=== PATIENT | female | born 1985 | race Caucasian/White ===

== ENCOUNTER 2022-03-01 16:11 | Emergency (ER) | payer BC ==
[2022-03-01 18:56] LABS: Hemoglobin 6.6 gm/dl (10.1-14.3); Mean Corpuscular HGB Conc 34 % (30-34); Mean Corpuscular Volume 89 fl (79-97); Platelet Count 318 K/mm3 (140-440); Red Cell Distribution Width 12.7 % (13.2-15.2)
[2022-03-01 19:07] LABS: INR 1.12 (0.87-1.13); Partial Thromboplastin Time 24.9 Sec. (24.2-36.6)
[2022-03-01 19:32] LABS: Alanine Aminotransferase 17 units/L (7-56); Albumin 3.8 g/dL (3.9-5); BUN/Creatinine Ratio 15; Blood Urea Nitrogen 12 mg/dL (7-17); Calcium 8.9 mg/dL (8.4-10.2); Hemolysis Index 2
[2022-03-01 20:22] LABS: Hematocrit 19.6 % (30.3-42.9)
[2022-03-01] MEDS ORDERED: SODIUM CHLORIDE 0.9% 1000 ML 1,000 ML IV ONE (21:25)
[2022-03-01 22:22] LABS: INR 1.39 (0.87-1.13)
[2022-03-01] MEDS ORDERED: SODIUM CHLORIDE 0.9% 500 ML 500 ML ONE (23:46)
--- NOTE | 2022-03-02 01:37 | Ultrasound Report ---
ULTRASOUND PELVIS INDICATION / CLINICAL INFORMATION: Vaginal bleeding. TECHNIQUE: Transabdominal. Duplex Color Doppler used: Yes. COMPARISON: None available FINDINGS: UTERUS: The uterus measures 7.7 x 4 x 5.6 cm. The uterus demonstrates a normal sonographic appearanc e. The endometrial stripe measures 1.8 cm. RIGHT ADNEXA: No significant ovarian cyst or mass. Normal color Doppler blood flow. LEFT ADNEXA: 3.3 cm cyst in the left ovary. No routine follow-up is required. Normal color Doppler bl ood flow. URINARY BLADDER: No significant abnormality. FREE FLUID: None. ADDITIONAL FINDINGS: None. IMPRESSION: 1. Mildly thickened endometrial stripe, likely physiologic in this young patient. 2. 3.3 cm left ovarian cyst. No routine follow-up is required. No evidence of ovarian torsion. Signer Name: Harris Montes De Oca MD Signed: 03/02/2022 1:32 AM Workstation Name: [id number]
[2022-03-02 02:54] VITALS: BP 105/81
--- NOTE | 2022-03-02 03:01 | Emergency Department Report ---
ED General Adult HPI - General Chief complaint: Vaginal Bleeding Stated complaint: VAGINAL BLEEDING PUI?: No Time Seen by Provider: 03/01/22 21:20 Source: patient, EMS Mode of arrival: Stretcher Limitations: No Limitations - History of Present Illness Initial comments: PT ARRIVING FROM DENTAL RESIDENT OFFICE FOR LAB WORK. VAG BLEEDING X1 WEEK. BLOOD WAS DRAWN AT THE OFFICE TODAY, BUT WOULD LIKE LAB WORK DONE AT ED TO COMPARE TO THEIR RESU LTS THAT HAVE NOT RESULTED. -: Gradual, days(s) Severity scale (0 -10): 3 Improves with: none Worsens with: none Associated Symptoms: denies: denies other symptoms, confusion, chest pain, cough, diaphoresis, fever/chills - Related Data Previous Rx's Medication Instructions Recorded Last Taken Type Ferrous Sulfate [Feosol 325 MG tab] 325 mg PO BID #60 tablet 04/23/15 Unknown Rx Ciprofloxacin HCl [Ciprofloxacin 500 mg PO BID #10 tablet 10/11/16 Unknown Rx TAB] Promethazine [Phenergan] 25 mg PO Q6HR PRN #20 tab 10/11/16 Unknown Rx metroNIDAZOLE [Flagyl] 500 mg PO Q12HR #10 tab 10/11/16 Unknown Rx Allergies Allergy/AdvReac Type Severity Reaction Status Date / Time Penicillins Allergy Hives Verified 03/01/22 16:22 ED Review of Systems ROS: Stated complaint: VAGINAL BLEEDING Other details as noted in HPI Constitutional: denies: chills, fever Eyes: denies: eye pain, eye discharge, vision change ENT: denies: ear pain, throat pain Respiratory: denies: cough, shortness of breath, wheezing Cardiovascular: denies: chest pain, palpitations Endocrine: no symptoms reported Gastrointestinal: denies: abdominal pain, nausea, diarrhea Genitourinary: denies: urgency, dysuria, discharge Musculoskeletal: denies: back pain, joint swelling, arthralgia Skin: denies: rash, lesions Neurological: denies: headache, weakness, paresthesias Psychiatric: denies: anxiety, depression Hematological/Lymphatic: denies: easy bleeding, easy bruising ED Past Medical Hx - Past Medical History Hx Hypertension: No Hx Congestive Heart Failure: No Hx Diabetes: No Hx Deep Vein Thrombosis: No Hx Renal Disease: No Hx Sickle Cell Disease: No Hx Arthritis: Yes (knees) Hx Seizures: No Hx Asthma: Yes (last attack 3yrs ago) Hx COPD: No Hx HIV: No - Social History Smoking Status: Unknown if ever smoked - Medications Home Medications: Home Medications Medication Instructions Recorded Confirmed Last Taken Type Ferrous Sulfate [Feosol 325 MG tab] 325 mg PO BID #60 tablet 04/23/15 Unknown Rx Ciprofloxacin HCl [Ciprofloxacin 500 mg PO BID #10 tablet 10/11/16 Unknown Rx TAB] Promethazine [Phenergan] 25 mg PO Q6HR PRN #20 tab 10/11/16 Unknown Rx metroNIDAZOLE [Flagyl] 500 mg PO Q12HR #10 tab 10/11/16 Unknown Rx ED Physical Exam - General Limitations: No Limitations General appearance: alert, in no apparent distress - Head Head exam: Present: atraumatic, normocephalic - Eye Eye exam: Present: normal appearance - ENT ENT exam: Present: mucous membranes moist - Neck Neck exam: Present: normal inspection - Respiratory Respiratory exam: Present: normal lung sounds bilaterally. Absent: respiratory distress - Cardiovascular Cardiovascular Exam: Present: regular rate, tachycardia. Absent: systolic murmur, diastolic murmur, rubs, gallop - GI/Abdominal GI/Abdominal exam: Present: soft, normal bowel sounds - External exam: Present: normal external exam Speculum exam: Present: vaginal bleeding - Extremities Exam Extremities exam: Present: normal inspection - Back Exam Back exam: Present: normal inspection - Neurological Exam Neurological exam: Present: alert, oriented X3 - Psychiatric Psychiatric exam: Present: normal affect, normal mood - Skin Skin exam: Present: warm, dry, intact, normal color. Absent: rash ED Course Vital Signs 03/01/22 03/01/22 03/01/22 16:18 17:43 21:48 Temperature 98.5 F Pulse Rate 110 H 116 H Respiratory 18 24 Rate Blood Pressure Blood Pressure 140/80 102/55 [Left] O2 Sat by Pulse 100 100 100 Oximetry 03/01/22 03/01/22 03/01/22 21:57 22:00 22:16 Temperature Pulse Rate 120 H 118 H Respiratory 16 15 16 Rate Blood Pressure 113/72 113/72 Blood Pressure [Left] O2 Sat by Pulse 98 100 100 Oximetry 03/01/22 03/01/22 03/01/22 22:30 22:46 23:00 Temperature Pulse Rate 115 H 119 H 113 H Respiratory 15 18 18 Rate Blood Pressure 116/71 116/71 107/67 Blood Pressure [Left] O2 Sat by Pulse 100 100 100 Oximetry 03/01/22 03/01/22 03/01/22 23:16 23:30 23:40 Temperature Pulse Rate 115 H 127 H 118 H Respiratory 19 17 17 Rate Blood Pressure 107/67 106/69 99/72 Blood Pressure [Left] O2 Sat by Pulse 100 100 100 Oximetry 03/01/22 03/01/22 03/02/22 23:50 23:53 00:00 Temperature 98.0 F Pulse Rate 113 H 118 H Respiratory 16 13 Rate Blood Pressure 102/68 102/68 Blood Pressure [Left] O2 Sat by Pulse 100 100 Oximetry 03/02/22 03/02/22 03/02/22 00:10 00:16 00:30 Temperature Pulse Rate 108 H 114 H 118 H Respiratory 21 18 13 Rate Blood Pressure 110/62 110/62 122/62 Blood Pressure [Left] O2 Sat by Pulse 100 100 100 Oximetry 03/02/22 03/02/22 03/02/22 00:46 01:00 01:16 Temperature Pulse Rate 106 H 123 H 103 H Respiratory 18 14 14 Rate Blood Pressure 110/62 108/61 108/61 Blood Pressure [Left] O2 Sat by Pulse 100 100 100 Oximetry 03/02/22 03/02/22 03/02/22 01:20 01:30 01:46 Temperature 99.9 F H Pulse Rate 106 H 101 H Respiratory 13 12 Rate Blood Pressure 111/70 111/70 Blood Pressure [Left] O2 Sat by Pulse 100 100 Oximetry 03/02/22 03/02/22 03/02/22 02:00 02:16 02:30 Temperature Pulse Rate 104 H 109 H 124 H Respiratory 12 12 16 Rate Blood Pressure 111/68 111/70 110/71 Blood Pressure [Left] O2 Sat by Pulse 100 100 100 Oximetry 03/02/22 03/02/22 02:40 02:50 Temperature Pulse Rate 147 H 101 H Respiratory 17 13 Rate Blood Pressure 110/71 105/81 Blood Pressure [Left] O2 Sat by Pulse 100 100 Oximetry ED Medical Decision Making - Lab Data Result diagrams: 03/01/22 18:08 03/01/22 18:08 - Radiology Data Radiology results: report reviewed, image reviewed - Medical Decision Making work up showed elevated wbc , Low H.H , vss , fluids given one uit of blood given , US unreamrkable , pelvic exam showed some clots but no active bleeding , spoke with dr Newton ob building insulation installer, ok with Blood transfusion and d/c , follow up with her ob Critical care attestation.: If time is entered above; I have spent that time in minutes in the direct care of this critically ill patient, excluding procedure time. ED Disposition Clinical Impression: Vaginal bleeding Disposition: HOME / SELF CARE / HOMELESS Is pt being admited?: No Does the pt Need Aspirin: No Condition: Stable Instructions: Abnormal Uterine Bleeding Referrals: TU SALDIVAR MD [Primary Care Provider] - 3-5 Days
[2022-03-02 03:34] LABS: Mucus,Urine 3+ /HPF
[2022-03-02 03:38] LABS: HCG Qualitative,Urine Negative (Negative)
[2022-03-02 03:39] LABS: Bilirubin,Urine Negative (Negative); Blood,Urine Large (Negative); Color,Urine Amber (Yellow); RBC,Urine > 182.0 /HPF (0.0-6.0); Urobilinogen,Urine < 2.0 mg/dL (<2.0)
--- NOTE | 2022-03-02 17:53 | Electrocardiograph Report ---
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
== END 2022-03-02 03:12 | disposition home or self-care (01) ==
LOC: ED 16:11
DX: N93.9 Abnormal uterine and vaginal bleeding, unspecified (principal); J45.909 Unspecified asthma, uncomplicated; M17.0 Bilateral primary osteoarthritis of knee
CPT/HCPCS: 36415; 76856; 80053; 81001; 81025; 84703; 85027; 85610; 85730; 86850; 86900; 86901; 86920; 87086; 93005; 96360; 99285; J7030; J7040; P9016

== ENCOUNTER 2022-03-04 02:24 | Observation (INO) | payer BC ==
[2022-03-04 03:22] LABS: Mean Corpuscular HGB Conc 33 % (30-34); Mean Corpuscular Volume 91 fl (79-97); Platelet Count 303 K/mm3 (140-440); Red Blood Count 1.92 M/mm3 (3.65-5.03); Red Cell Distribution Width 13.8 % (13.2-15.2)
[2022-03-04 03:24] LABS: Hematocrit 17.5 % (30.3-42.9); Hemoglobin 5.7 gm/dl (10.1-14.3)
[2022-03-04] MEDS ORDERED: SODIUM CHLORIDE 0.9% 500 ML 500 ML IV ONE (03:48)
[2022-03-04 03:55] LABS: Total Cells Counted 100
[2022-03-04 03:56] LABS: Anisocytosis 1+; Basophils % (Manual) 0 % (0.0-1.8); Blood Urea Nitrogen 7 mg/dL (7-17); Calcium 8.9 mg/dL (8.4-10.2); Hemolysis Index 0; Platelet Estimate Consistent w Auto
[2022-03-04] MEDS ORDERED: SODIUM CHLORIDE 0.9% 1000 ML 1,000 ML IV ONE (03:57)
--- NOTE | 2022-03-04 04:00 | Emergency Department Report ---
HPI - General Chief Complaint: Vaginal Bleeding Time Seen by Provider: 03/04/22 03:26 - [facility] HPI: Room 7 Patient is a 36-year-old female present with chief complaint of vaginal bleeding. Patient states she has had vaginal bleeding for the past 2 weeks, then approximately 48 pads per day. Patient states she came to this hospital approximate 2 days ago had a blood transfusion was being set up for uterine ablation. Patient states she still has vaginal bleeding despite taking Provera although it has slowed up some. Patient states she developed a headache and chest pain with exertion 2 days ago. Patient states she does get short of breath with exertion and has palpitations whenever she gets up and moves around. Patient currently denies chest pain while at rest. Patient mitts to nausea with dry heaving ED Past Medical Hx - Past Medical History Hx Arthritis: Yes (knees) Hx Asthma: Yes (last attack 3yrs ago) - Surgical History Additional Surgical History: Left iliac stent, left knee surgery x2 - Family History Family history: no significant - Social History Smoking Status: Never Smoker Substance Use Type: None (Denies illicit drug use), Alcohol (Occasional) - Medications Home Medications: Home Medications Medication Instructions Recorded Confirmed Last Taken Type Rivaroxaban [Xarelto] 20 mg PO QDAY 03/04/22 03/04/22 Unknown History ED Review of Systems ROS: Stated complaint: HIGH HEART RATE/VAGINAL BLEEDING Other details as noted in HPI Constitutional: no symptoms reported Eyes: denies: eye pain ENT: denies: throat pain Respiratory: shortness of breath Cardiovascular: chest pain, palpitations Endocrine: no symptoms reported Gastrointestinal: nausea Genitourinary: abnormal menses Musculoskeletal: denies: back pain Neurological: headache Physical Exam - Physical Exam Vital Signs: Vital Signs 03/04/22 02:36 Temperature 98.3 F Pulse Rate 123 H Respiratory 18 Rate Blood Pressure 117/75 O2 Sat by Pulse 100 Oximetry Physical Exam: GENERAL: The patient is well-developed well-nourished female lying on stretcher not appearing to be in acute distress. [] HEENT: Normocephalic. Atraumatic. Extraocular motions are intact. Patient has moist mucous membranes. NECK: Supple. Trachea midline CHEST/LUNGS: Clear to auscultation. There is no respiratory distress noted. HEART/CARDIOVASCULAR: Regular. There is tachycardia. There is no gallop rub or murmur. ABDOMEN: Abdomen is soft, nontender. Patient has normal bowel sounds. There is no abdominal distention. SKIN: There is no rash. There is no edema. There is no diaphoresis. NEURO: The patient is awake, alert, and oriented. The patient is cooperative. The patient has no focal neurologic deficits. The patient has normal speech. GCS 15 MUSCULOSKELETAL: There is no evidence of acute injury. PELVIC: Small to moderate amount of dark red blood in the vaginal vault. ED Course Vital Signs 03/04/22 02:36 Temperature 98.3 F Pulse Rate 123 H Respiratory 18 Rate Blood Pressure 117/75 O2 Sat by Pulse 100 Oximetry ED Medical Decision Making - Lab Data Result diagrams: 03/04/22 15:17 03/04/22 03:03 Laboratory Tests 03/04/22 03/04/22 03/04/22 03:03 03:03 03:03 WBC 14.8 H RBC 1.92 L Hgb 5.7 L* Hct 17.5 L* MCV 91 MCH 30 MCHC 33 RDW 13.8 Plt Count 303 Lymph # (Auto) Slab Installer Add Manual Diff Complete Total Counted 100 Seg Neuts % (Manual) 67.0 Band Neutrophils % 0 Lymphocytes % (Manual) 31.0 Reactive Lymphs % (Man) 0 Monocytes % (Manual) 1.0 Eosinophils % (Manual) 1.0 Basophils % (Manual) 0 Metamyelocytes % 0 Myelocytes % 0 Promyelocytes % 0 Blast Cells % 0 Nucleated RBC % Not Reportable Seg Neutrophils # Man 9.9 H Band Neutrophils # 0.0 Lymphocytes # (Manual) 4.6 Abs React Lymphs (Man) 0.0 Monocytes # (Manual) 0.1 Eosinophils # (Manual) 0.1 Basophils # (Manual) 0.0 Metamyelocytes # 0.0 Myelocytes # 0.0 Promyelocytes # 0.0 Blast Cells # 0.0 WBC Morphology Not Reportable Hypersegmented Neuts Not Reportable Hyposegmented Neuts Not Reportable Hypogranular Neuts Not Reportable Smudge Cells Not Reportable Toxic Granulation Not Reportable Toxic Vacuolation Not Reportable Dohle Bodies Not Reportable Pelger-Huet Anomaly Not Reportable Ramesh Rods Not Reportable Platelet Estimate Consistent w auto Clumped Platelets Not Reportable Plt Clumps, EDTA Not Reportable Large Platelets Not Reportable Giant Platelets Not Reportable Platelet Satelliting Not Reportable Plt Morphology Comment Not Reportable RBC Morphology Not Reportable Dimorphic RBCs Not Reportable Polychromasia Not Reportable Hypochromasia Not Reportable Poikilocytosis Not Reportable Anisocytosis 1+ Microcytosis Not Reportable Macrocytosis Not Reportable Spherocytes Not Reportable Pappenheimer Bodies Not Reportable Sickle Cells Not Reportable Target Cells Not Reportable Tear Drop Cells Not Reportable Ovalocytes Not Reportable Helmet Cells Not Reportable Olivares-Parkerfield Bodies Not Reportable [place] Rings Not Reportable Rasheed Cells Not Reportable Bite Cells Not Reportable Crenated Cell Not Reportable Elliptocytes Not Reportable Acanthocytes (Spur) Not Reportable Rouleaux Not Reportable Hemoglobin C Crystals Not Reportable Schistocytes Not Reportable Malaria parasites Not Reportable Costa Bodies Not Reportable Hem Pathologist Commnt No PT INR APTT Sodium Potassium Chloride Carbon Dioxide Anion Gap BUN Creatinine Estimated GFR BUN/Creatinine Ratio Glucose Calcium HCG, Qual Negative HCG, Quant < 2 Blood Type Antibody Screen Crossmatch 03/04/22 03/04/22 03/04/22 03:03 03:03 03:03 WBC RBC Hgb Hct MCV MCH MCHC RDW Plt Count Lymph # (Auto) Add Manual Diff Total Counted Seg Neuts % (Manual) Band Neutrophils % Lymphocytes % (Manual) Reactive Lymphs % (Man) Monocytes % (Manual) Eosinophils % (Manual) Basophils % (Manual) Metamyelocytes % Myelocytes % Promyelocytes % Blast Cells % Nucleated RBC % Seg Neutrophils # Man Band Neutrophils # Lymphocytes # (Manual) Abs React Lymphs (Man) Monocytes # (Manual) Eosinophils # (Manual) Basophils # (Manual) Metamyelocytes # Myelocytes # Promyelocytes # Blast Cells # WBC Morphology Hypersegmented Neuts Hyposegmented Neuts Hypogranular Neuts Smudge Cells Toxic Granulation Toxic Vacuolation Dohle Bodies Pelger-Huet Anomaly Ramesh Rods Platelet Estimate Clumped Platelets Plt Clumps, EDTA Large Platelets Giant Platelets Platelet Satelliting Plt Morphology Comment RBC Morphology Dimorphic RBCs Polychromasia Hypochromasia Poikilocytosis Anisocytosis Microcytosis Macrocytosis Spherocytes Pappenheimer Bodies Sickle Cells Target Cells Tear Drop Cells Ovalocytes Helmet Cells Olivares-Parkerfield Bodies [place] Rings [place] Cells Bite Cells Crenated Cell Elliptocytes Acanthocytes (Spur) Rouleaux Hemoglobin C Crystals Schistocytes Malaria parasites Costa Bodies Hem Pathologist Commnt PT INR APTT Sodium 139 Potassium 3.4 L Chloride 107.5 H Carbon Dioxide 19 L Anion Gap 16 BUN 7 Creatinine 0.7 Estimated GFR > 60 BUN/Creatinine Ratio 10 Glucose 117 H Calcium 8.9 HCG, Qual HCG, Quant Blood Type O POSITIVE O POSITIVE Antibody Screen Negative Crossmatch See Detail 03/04/22 03:49 WBC RBC Hgb Hct MCV MCH MCHC RDW Plt Count Lymph # (Auto) Add Manual Diff Total Counted Seg Neuts % (Manual) Band Neutrophils % Lymphocytes % (Manual) Reactive Lymphs % (Man) Monocytes % (Manual) Eosinophils % (Manual) Basophils % (Manual) Metamyelocytes % Myelocytes % Promyelocytes % Blast Cells % Nucleated RBC % Seg Neutrophils # Man Band Neutrophils # Lymphocytes # (Manual) Abs React Lymphs (Man) Monocytes # (Manual) Eosinophils # (Manual) Basophils # (Manual) Metamyelocytes # Myelocytes # Promyelocytes # Blast Cells # WBC Morphology Hypersegmented Neuts Hyposegmented Neuts Hypogranular Neuts Smudge Cells Toxic Granulation Toxic Vacuolation Dohle Bodies Pelger-Huet Anomaly Ramesh Rods Platelet Estimate Clumped Platelets Plt Clumps, EDTA Large Platelets Giant Platelets Platelet Satelliting Plt Morphology Comment RBC Morphology Dimorphic RBCs Polychromasia Hypochromasia Poikilocytosis Anisocytosis Microcytosis Macrocytosis Spherocytes Pappenheimer Bodies Sickle Cells Target Cells Tear Drop Cells Ovalocytes Helmet Cells Olivares-Parkerfield Bodies [place] Rings Rasheed Cells Bite Cells Crenated Cell Elliptocytes Acanthocytes (Spur) Rouleaux Hemoglobin C Crystals Schistocytes Malaria parasites Costa Bodies Hem Pathologist Commnt PT 16.2 H INR 1.16 H APTT 25.6 Sodium Potassium Chloride Carbon Dioxide Anion Gap BUN Creatinine Estimated GFR BUN/Creatinine Ratio Glucose Calcium HCG, Qual HCG, Quant Blood Type Antibody Screen Crossmatch - Radiology Data Radiology results: report reviewed (Pelvic ultrasound), image reviewed (Pelvic ultrasound) [facility] [address] [place] [address] Ultrasound Report Signed Patient: NEENA MAZA MR#: [id number] : 1985 Acct:[id number] Age/Sex: 36 / F ADM Date: 03/04/22 Loc: ED Attending Dr: Ordering Physician: DEMIAN MORAN MD Date of Service: 03/04/22 Procedure(s): US transvaginal Accession Number(s): [id number] cc: DEMIAN MORAN MD ULTRASOUND PELVIS INDICATION / CLINICAL INFORMATION: Vaginal bleeding. TECHNIQUE: Transvaginal. Duplex Color Doppler used: Yes. COMPARISON: 03/02/2022 FINDINGS: UTERUS: The uterus measures 7.3 x 4.2 x 4.7 cm. The uterus demonstrates a normal sonographic appearance. The endometrial stripe measures 2.0 cm. RIGHT ADNEXA: No significant ovarian cyst or mass. Normal color Doppler blood flow. LEFT ADNEXA: Multiple follicles, largest measuring 1.5 cm. Previously described 3.3 cm left ovarian cyst is no longer visualized. No suspicious ovarian cyst or mass. Normal color D oppler blood flow. URINARY BLADDER: No significant abnormality. FREE FLUID: None. ADDITIONAL FINDINGS: None. IMPRESSION: 1. Persistent thickening of the endometrial stripe, measuring 2 cm. This is nonspecific but likely physiologic in this young patient. However, continued follow-up with CLINICAL ACCOUNT SPECIALIST is recommended. 2. No suspicious adnexal cyst or mass. No evidence of ovarian torsion. Signer Name: Guillermo Montes De Oca MD Signed: 03/04/2022 5:36 AM Workstation Name: [id number] Transcribed By: COLLINS Dictated By: GUILLERMO MONTES DE OCA MD Electronically Authenticated By: GUILLERMO MONTES DE OCA MD Signed Date/Time: 03/04/22535 DD/ 3 TD/TT: - Differential Diagnosis Menorrhagia, symptomatic anemia Critical care attestation.: If time is entered above; I have spent that time in minutes in the direct care of this critically ill patient, excluding procedure time. ED Disposition Clinical Impression: Menorrhagia, Symptomatic anemia Disposition: ADMITTED INPATIENT Is pt being admited?: Yes Does the pt Need Aspirin: No Condition: Stable Time of Disposition: 05:56 (CLINICAL ACCOUNT SPECIALIST paged)
[2022-03-04 04:06] LABS: BUN/Creatinine Ratio 10
[2022-03-04 04:16] LABS: INR 1.16 (0.87-1.13)
[2022-03-04 04:17] LABS: Partial Thromboplastin Time 25.6 Sec. (24.2-36.6)
[2022-03-04] MEDS ORDERED: ONDANSETRON 4 MG/2 ML INJ IV ONE (04:24)
[2022-03-04] MEDS ORDERED: fentaNYL 100 MCG/2 ML INJ IV ONE (04:24)
--- NOTE | 2022-03-04 05:40 | Ultrasound Report ---
ULTRASOUND PELVIS INDICATION / CLINICAL INFORMATION: Vaginal bleeding. TECHNIQUE: Transvaginal. Duplex Color Doppler used: Yes. COMPARISON: 03/02/2022 FINDINGS: UTERUS: The uterus measures 7.3 x 4.2 x 4.7 cm. The uterus demonstrates a normal sonographic appeara nce. The endometrial stripe measures 2.0 cm. RIGHT ADNEXA: No significant ovarian cyst or mass. Normal color Doppler blood flow. LEFT ADNEXA: Multiple follicles, largest measuring 1.5 cm. Previously described 3.3 cm left ovarian c yst is no longer visualized. No suspicious ovarian cyst or mass. Normal color Doppler blood flow. URINARY BLADDER: No significant abnormality. FREE FLUID: None. ADDITIONAL FINDINGS: None. IMPRESSION: 1. Persistent thickening of the endometrial stripe, measuring 2 cm. This is nonspecific but likely ph ysiologic in this young patient. However, continued follow-up with CNA INSTRUCTOR is recommended. 2. No suspicious adnexal cyst or mass. No evidence of ovarian torsion. Signer Name: Harris Montes De Oca MD Signed: 03/04/2022 5:36 AM Workstation Name: [id number]
[2022-03-04 06:10] LABS: Mucus,Urine FEW /HPF
[2022-03-04 06:13] LABS: Bilirubin,Urine Negative (Negative); Blood,Urine 4+ (Negative); Color,Urine Straw (Yellow); RBC,Urine > 182.0 /HPF (0.0-6.0); Urobilinogen,Urine < 1.0 mg/dL (<2.0)
[2022-03-04] MEDS ORDERED: ACETAMINOPHEN 325 MG TAB PO PRN (06:26)
[2022-03-04] MEDS ORDERED: NALOXONE 0.4 MG/1 ML INJ IV PRN (06:26)
--- NOTE | 2022-03-04 08:47 | Short Stay Summary ---
Short Stay Documentation Date of service: 03/04/22 Narrative H&P: 36-year-old -0-0-3 with a history of worsening vaginal bleeding. The patient has recently been initiated on anticoagulation therapy with Xarelto secondary to findings of inadequate blood flow involving the left lower extremity per the patient report. She also states having a stent placed. The patient has become hemodynamically unstable with symptoms of palpitations dizziness and fatigue. At the time of presentation in the emergency department the patient was tachycardic with a hemoglobin less than 6. Medical management has been attempted with oral progesterone however she has been unresponsive. The patient was admitted for transfusion of blood products. Will attempt an embolization to control her uterine bleeding. - History Principal diagnosis: Menorrhagia; Symptomatic anemia Past Medical History: DVT Social history: - Allergies and Medications Current Medications: Allergies Penicillins Allergy (Verified 03/01/22 16:22) Hives Home Medications Medication Instructions Recorded Confirmed Last Taken Type Ferrous Sulfate [Feosol 325 MG tab] 325 mg PO BID #60 tablet 04/23/15 Unknown Rx Ciprofloxacin HCl [Ciprofloxacin 500 mg PO BID #10 tablet 10/11/16 Unknown Rx TAB] Promethazine [Phenergan] 25 mg PO Q6HR PRN #20 tab 10/11/16 Unknown Rx metroNIDAZOLE [Flagyl] 500 mg PO Q12HR #10 tab 10/11/16 Unknown Rx Active Medications Acetaminophen (Acetaminophen 325 Mg Tab) 650 mg PO Q4H PRN PRN Reason: Pain MILD(1-3)/Fever >100.5/CHU Sodium Chloride (Nacl 0.9% 1000 Ml) 1,000 mls @ 125 mls/hr IV DIRECT JOSUE Morphine Sulfate (Morphine 2 Mg/1 Ml Inj) 2 mg IV Q4H PRN PRN Reason: Pain, Moderate (4-6) Naloxone HCl (Naloxone 0.4 Mg/1 Ml Inj) 0.1 mg IV Q2MIN PRN PRN Reason: Res Rate </= 8 or 02 SAT < 92% Ondansetron HCl (Ondansetron 4 Mg/2 Ml Inj) 4 mg IV Q8H PRN PRN Reason: Nausea And Vomiting Sodium Chloride (Sodium Chloride 0.9% 10 Ml Flush Syringe) 10 ml IV BID JOSUE Sodium Chloride (Sodium Chloride 0.9% 10 Ml Flush Syringe) 10 ml IV PRN PRN PRN Reason: LINE FLUSH - Physical exam General appearance: mild distress, other Integumentary: no rash HEENT: Atraumatic Lungs: Clear to auscultation Breasts: deferred Heart: Other (Tachycardia) - Hospital course Hospital course: The patient was admitted through the emergency department secondary to symptomatic anemia with a hemoglobin of 5.7 at presentation. 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 The patient also had a history of placement of a stent secondary to this compression. She was unable to be managed as outpatient with medical therapy. The patient was admitted and underwent transfusion of blood products and also a uterine artery embolization. She had considerable improvement of her symptoms and remained hemodynamically stable after the procedure and the transfusion. - Disposition Condition at discharge: Good Disposition: 01 HOME / SELF CARE / HOMELESS Short Stay Discharge Plan Activity: no restrictions Diet: regular Additional Instructions: Patient may follow-up with Dr. Patrick in 2 weeks Please present to the office earlier if abnormal bleeding resumes Prescriptions: Docusate Sodium [Colace] 100 mg PO BID PRN #60 capsule PRN Reason: Constipation Ferrous Sulfate [Feosol 325 MG tab] 325 mg PO BID #60 tablet
--- NOTE | 2022-03-04 08:59 | Consultation ---
History of Present Illness - Reason for Consult Consult date: 03/04/22 Chest pain with severe anemia Requesting physician: ANDRESSA WILLIAMSON - History of Present Illness Patient is a 36-year-old female with a history of migraine headaches, peripheral artery disease left lower ext with stent placed in November 2021 and currently on Xarelto. She presents to the ED with complaints of dizziness palpitations fatigue and chest discomfort. The chest discomfort she describes as pressure on her chest 7/10 in intensity and some shortness of breath associated. She reports a history of menorrhagia and was taken off control pill due to TIA scare a few months ago. She reports that since initiation of Xarelto she has had heavy bleeding. On arrival to the ER she was noted to have a hemoglobin of 5.7 and was admitted with 2 units of blood. At the time of my evaluation she denies any further chest pain she states that she is feeling much better dizziness is resolved and palpitations is resolved. She is being planned for embolization to control her uterine bleed. Past History Past Medical History: DVT, migraines, other (PAD) Past Surgical History: arthroscopy, Other (Left pleural stent placement lower extremity) Social history: Family history: CAD Medications and Allergies Allergies Allergy/AdvReac Type Severity Reaction Status Date / Time Penicillins Allergy Hives Verified 03/01/22 16:22 Home Medications Medication Instructions Recorded Confirmed Last Taken Type Ferrous Sulfate [Feosol 325 MG tab] 325 mg PO BID #60 tablet 04/23/15 Unknown Rx Ciprofloxacin HCl [Ciprofloxacin 500 mg PO BID #10 tablet 10/11/16 Unknown Rx TAB] Promethazine [Phenergan] 25 mg PO Q6HR PRN #20 tab 10/11/16 Unknown Rx metroNIDAZOLE [Flagyl] 500 mg PO Q12HR #10 tab 10/11/16 Unknown Rx Active Meds: Active Medications Acetaminophen (Acetaminophen 325 Mg Tab) 650 mg PO Q4H PRN PRN Reason: Pain MILD(1-3)/Fever >100.5/CHU Sodium Chloride (Nacl 0.9% 1000 Ml) 1,000 mls @ 125 mls/hr IV DIRECT JOSUE Morphine Sulfate (Morphine 2 Mg/1 Ml Inj) 2 mg IV Q4H PRN PRN Reason: Pain, Moderate (4-6) Naloxone HCl (Naloxone 0.4 Mg/1 Ml Inj) 0.1 mg IV Q2MIN PRN PRN Reason: Res Rate </= 8 or 02 SAT < 92% Ondansetron HCl (Ondansetron 4 Mg/2 Ml Inj) 4 mg IV Q8H PRN PRN Reason: Nausea And Vomiting Sodium Chloride (Sodium Chloride 0.9% 10 Ml Flush Syringe) 10 ml IV BID JOSUE Sodium Chloride (Sodium Chloride 0.9% 10 Ml Flush Syringe) 10 ml IV PRN PRN PRN Reason: LINE FLUSH Review of Systems All systems: negative Constitutional: fatigue, weakness Cardiovascular: chest pain, palpitations, shortness of breath Respiratory: shortness of breath Menstruation: period heavy, menses 1-7 days Exam - Physical Exam Narrative exam: VITAL SIGNS: Reviewed. GENERAL: The patient appears normally developed, Vital signs as documented. HEAD: No signs of head trauma. EYES: Pupils are equal. Extraocular motions intact. EARS: Hearing grossly intact. MOUTH: Oropharynx is normal. NECK: No adenopathy, no JVD. CHEST: Chest with clear breath sounds bilaterally. No wheezes, rales, or rhonchi. CARDIAC: Regular rate and rhythm. S1 and S2, without murmurs, gallops, or rubs. VASCULAR: No Edema. Peripheral pulses normal and equal in all extremities. ABDOMEN: Soft, non tender and non distended. No rebound or guarding, and no masses palpated. Bowel Sounds normal. MUSCULOSKELETAL: Good range of motion of all major joints. Extremities without clubbing, cyanosis or edema. NEUROLOGIC EXAM: Alert and oriented x 3 No focal sensory or strength deficits. Speech normal. Follows commands. PSYCHIATRIC: Mood normal. SKIN: detail exam as documented in skin assessment - Constitutional Vitals: Temp Pulse Resp BP Pulse Ox 98.6 F 93 H 12 109/64 100 03/04/22 08:05 03/04/22 08:05 03/04/22 08:05 03/04/22 08:05 03/04/22 08:05 Results - Labs CBC & Chem 7: 03/04/22 03:03 03/04/22 03:03 Labs: Abnormal lab results 03/04/22 03/04/22 03/04/22 Range/Units 03:03 03:03 03:03 WBC 14.8 H (4.5-11.0) K/mm3 RBC 1.92 L (3.65-5.03) M/mm3 Hgb 5.7 L* (10.1-14.3) gm/dl Hct 17.5 L* (30.3-42.9) % Seg Neutrophils # Man 9.9 H (1.8-7.7) K/mm3 PT (12.2-14.9) Sec. INR (0.87-1.13) Potassium 3.4 L (3.6-5.0) mmol/L Chloride 107.5 H (98-107) mmol/L Carbon Dioxide 19 L (22-30) mmol/L Glucose 117 H (65-100) mg/dL Urine WBC (Auto) (0.0-6.0) /HPF Crossmatch See Detail 03/04/22 03/04/22 Range/Units 03:49 05:54 WBC (4.5-11.0) K/mm3 RBC (3.65-5.03) M/mm3 Hgb (10.1-14.3) gm/dl Hct (30.3-42.9) % Seg Neutrophils # Man (1.8-7.7) K/mm3 PT 16.2 H (12.2-14.9) Sec. INR 1.16 H (0.87-1.13) Potassium (3.6-5.0) mmol/L Chloride (98-107) mmol/L Carbon Dioxide (22-30) mmol/L Glucose (65-100) mg/dL Urine WBC (Auto) 11.0 H (0.0-6.0) /HPF Crossmatch Assessment and Plan Patient is a 36-year-old female with a history of migraine headaches, peripheral artery disease left lower ext with stent placed in November 2021 and currently on Xarelto. She presents to the ED with complaints of dizziness palpitations fatigue and chest discomfort. The chest discomfort she describes as pressure on her chest 7/10 in intensity and some shortness of breath associated. She r eports a history of menorrhagia and was taken off control pill due to TIA scare a few months ago. She reports that since initiation of Xarelto she has had heavy bleeding. She stopped the Xarelto 2 days ago on arrival to the ER she was noted to have a hemoglobin of 5.7 and was admitted with 2 units of blood. At the time of my evaluation she denies any further chest pain she states that she is feeling much better dizziness is resolved and palpitations is resolved. She is being planned for embolization to control her uterine bleed. Symptomatic anemia with associated chest pain or shortness of Atypical chest pain likely secondary to severe anemia Migraine chronic Left lower extremity PAD status post stents on anticoagulation Plan Agree with Transfusion, Obtain Post transfusion H/H Continue Iron supplementation Will request input from Vascular in respect to PAD Will check Cardiac enzymes and repeat EKG if repeat chest pains Thank you for allowing us take part in the care of your patient as information become available more therapeutic or diagnostic measures noted to be impl emented. If no further chest pain after procedure will be cleared from medical standpoint for discharge and outpatient follow-up DVT-SCD GI Prophy CCT 60mins
[2022-03-04 12:27] LABS: Creatine Kinase MB 1.2 ng/mL (0.0-4.0)
[2022-03-04] MEDS: SODIUM CHLORIDE 0.9% 1000 ML 1,000 ML IV SCH (14:07)
--- NOTE | 2022-03-04 14:11 | Consultation ---
History of Present Illness - Reason for Consult Consult date: 03/04/22 prolonged uterine bleeding - History of Present Illness Patient with a history of venous hypertension who was noted to have compression of her common iliac vein and was treated with venoplasty and stent placement in November at [facility]. No DVT. The patient was placed on Xarelto prophylactically following her stent placement. She began to have worsening dysfunctional uterine bleeding culminating with her presentation at [facility] with a hemoglobin of 5 Past History Past Medical History: DVT, migraines, other (PAD) Past Surgical History: arthroscopy, Other (Left pleural stent placement lower extremity) Social history: Family history: CAD Medications and Allergies Allergies Allergy/AdvReac Type Severity Reaction Status Date / Time Penicillins Allergy Hives Verified 03/04/22 11:13 Home Medications Medication Instructions Recorded Confirmed Last Taken Type Rivaroxaban [Xarelto] 20 mg PO QDAY 03/04/22 03/04/22 Unknown History Active Meds: Active Medications Acetaminophen (Acetaminophen 325 Mg Tab) 650 mg PO Q4H PRN PRN Reason: Pain MILD(1-3)/Fever >100.5/CHU Sodium Chloride (Nacl 0.9% 1000 Ml) 1,000 mls @ 125 mls/hr IV DIRECT JOSUE Morphine Sulfate (Morphine 2 Mg/1 Ml Inj) 2 mg IV Q4H PRN PRN Reason: Pain, Moderate (4-6) Naloxone HCl (Naloxone 0.4 Mg/1 Ml Inj) 0.1 mg IV Q2MIN PRN PRN Reason: Res Rate </= 8 or 02 SAT < 92% Ondansetron HCl (Ondansetron 4 Mg/2 Ml Inj) 4 mg IV Q8H PRN PRN Reason: Nausea And Vomiting Sodium Chloride (Sodium Chloride 0.9% 10 Ml Flush Syringe) 10 ml IV BID JOSUE Sodium Chloride (Sodium Chloride 0.9% 10 Ml Flush Syringe) 10 ml IV PRN PRN PRN Reason: LINE FLUSH Review of Systems All systems: negative Exam - Constitutional Vitals: Temp Pulse Resp BP Pulse Ox 98.6 F 81 23 111/45 100 03/04/22 08:05 03/04/22 12:11 03/04/22 12:11 03/04/22 12:21 03/04/22 12:21 General appearance: Present: no acute distress - EENT Eyes: Present: EOM intact ENT: hearing intact - Neck Neck: Present: supple, normal ROM - Respiratory Respiratory effort: normal - Abdominal General gastrointestinal: Present: deferred Female genitourinary: Present: deferred - Rectal Rectal Exam: deferred - Psychiatric Psychiatric: appropriate mood/affect, cooperative Results - Labs CBC & Chem 7: 03/04/22 03:03 03/04/22 03:03 Labs: Abnormal lab results 03/04/22 03/04/22 03/04/22 Range/Units 03:03 03:03 03:03 WBC 14.8 H (4.5-11.0) K/mm3 RBC 1.92 L (3.65-5.03) M/mm3 Hgb 5.7 L* (10.1-14.3) gm/dl Hct 17.5 L* (30.3-42.9) % Seg Neutrophils # Man 9.9 H (1.8-7.7) K/mm3 PT (12.2-14.9) Sec. INR (0.87-1.13) Potassium 3.4 L (3.6-5.0) mmol/L Chloride 107.5 H (98-107) mmol/L Carbon Dioxide 19 L (22-30) mmol/L Glucose 117 H (65-100) mg/dL Urine WBC (Auto) (0.0-6.0) /HPF Crossmatch See Detail 03/04/22 03/04/22 Range/Units 03:49 05:54 WBC (4.5-11.0) K/mm3 RBC (3.65-5.03) M/mm3 Hgb (10.1-14.3) gm/dl Hct (30.3-42.9) % Seg Neutrophils # Man (1.8-7.7) K/mm3 PT 16.2 H (12.2-14.9) Sec. INR 1.16 H (0.87-1.13) Potassium (3.6-5.0) mmol/L Chloride (98-107) mmol/L Carbon Dioxide (22-30) mmol/L Glucose (65-100) mg/dL Urine WBC (Auto) 11.0 H (0.0-6.0) /HPF Crossmatch - Imaging and Cardiology CT scan - abdomen: image reviewed CT scan - pelvis: image reviewed Assessment and Plan Patient underwent a stat CTA of the abdomen pelvis which demonstrated engorged uterine veins but no identifiable source of uterine bleeding. Patient's symptoms are likely result of Xarelto administration in conjunction with her menstrual cycle. The patient's Xarelto can be discontinued. She does not need to be on anticoagulation. The patient will be brought to the [facility] for embolization of bilateral uterine arteries with Gelfoam. The patient can be discharged home once she stabilizes from a medicine point of view. She will follow-up on an outpatient basis in 1 to 2weeks with me.
[2022-03-04] MEDS ORDERED: SODIUM CHLORIDE 0.9% 1000 ML 1,000 ML ONE (14:44)
[2022-03-04] MEDS ORDERED: ONDANSETRON 4 MG/2 ML INJ ONE (14:45)
[2022-03-04] MEDS ORDERED: MIDAZOLAM 2 MG/2 ML INJ ONE (14:45)
[2022-03-04] MEDS: LIDOCAINE (1%) 10 MG/1 ML VIAL 20 ML MDV ONE ×2 (15:02→15:35)
[2022-03-04] MEDS: fentaNYL 100 MCG/2 ML INJ ONE ×3 (15:02→16:30)
[2022-03-04] MEDS ORDERED: VERAPAMIL 5 MG/2 ML INJ ONE (15:06)
[2022-03-04] MEDS ORDERED: NITROGLYCERIN SYRINGE 3 ML ONE (15:06)
[2022-03-04] MEDS: HEPARIN 10,000 UNITS/10 ML VIAL ONE ×2 (15:08→16:45)
[2022-03-04] MEDS: MIDAZOLAM 2 MG/2 ML INJ ONE ×4 (15:21→17:25)
--- NOTE | 2022-03-04 15:22 | Cat Scan Report ---
CT angio abdomen pelvis INDICATION / CLINICAL INFORMATION: dysfunctional uterine bleeding. TECHNIQUE: CTA of the abdomen and pelvis. MIPS were performed. All CT scans at this location are performed using CT dose reduction for ALARA by means of automated exposure control. COMPARISON: Ultrasound from same day FINDINGS: VASCULATURE: Aorta is normal in caliber. No dissection. No aneurysm. The celiac, superior mesenteric, inferior mesenteric, and bilateral renal arteries are all patent wit hout occlusion or hemodynamically significant stenosis. The iliac and visualized femoral arteries are normal. No active extravasation of contrast. There is a stent seen within the left common iliac vein and patency is not evaluated for this exam. ABDOMEN and PELVIS: Liver: No significant abnormality. Biliary: No significant abnormality. Spleen: No significant abnormality. Pancreas: No significant abnormality. Adrenals: No significant abnormality. Kidneys: No significant abnormality. Lymphatics: No lymphadenopathy. Bowel/Peritoneum: No significant abnormality. Pelvis: No significant abnormality. Osseous Structures: No aggressive osseous lesion. Additional Findings: None IMPRESSION: 1. No significant vascular abnormality. Signer Name: Akin Lisa MD Signed: 03/04/2022 3:17 PM Workstation Name: [id number]
[2022-03-04] MEDS ORDERED: SODIUM CHLORIDE IRRI 500 ML 1,000 ML IR ONE (15:53)
[2022-03-04 15:56] LABS: Basophils # (Auto) 0.1 K/mm3 (0.0-0.1); Basophils % (Auto) 0.5 % (0.0-1.8); Eosinophils % (Auto) 0.1 % (0.0-4.3); Hematocrit 24.4 % (30.3-42.9); Hemoglobin 8.2 gm/dl (10.1-14.3); Lymphocytes # (Auto) 4.4 K/mm3 (1.2-5.4); Lymphocytes % (Auto) 32.2 % (13.4-35.0); Mean Corpuscular HGB Conc 34 % (30-34); Mean Corpuscular Volume 88 fl (79-97); Monocytes # (Auto) 0.7 K/mm3 (0.0-0.8); Platelet Count 254 K/mm3 (140-440); Red Blood Count 2.79 M/mm3 (3.65-5.03); Red Cell Distribution Width 14.6 % (13.2-15.2)
[2022-03-04 17:15] LABS: Creatine Kinase MB 1.3 ng/mL (0.0-4.0)
--- NOTE | 2022-03-04 17:49 | Operative Report ---
Operative Report Operative Report: Exam: Uterine artery embolization Clinical indication: Patient with a history of uterine bleeding with a hemo globin of 5 Date: 03/04/2022 Procedure: Following an explanation of the risk, benefits and alternatives; written informed consent was obtained. The patient was brought to the angiographic suite and placed in supine position on the examination table. Evaluation of her left hand was performed and the patient passed her Yong's test. Patient's left hand and wrist were prepped and draped in the usual sterile fashion. 1% lidocaine was used for anesthesia under ultrasound guidance, the left radial artery was cannulated with a 3-1/2 cm 21-gauge needle. A 0.018 guidewire was advanced centrally. The needle was removed and a 5 Romanian low-profile sheath placed. Following the administration of a radial cocktail, a vertebral catheter and 0.035 guidewire were advanced however, the patient despite the administration of the radial cocktail experienced significant spasm likely secondary to the diminutive size of her vessels and therefore this access was abandoned. The sheath was removed and a TR band applied. Evaluation of the left groin demonstrated a patent left common femoral artery. The patient left groin was prepped and draped in the usual sterile fashion. 1% lidocaine was used for anesthesia. Under ultrasound guidance, the left common femoral artery was cannulated with a 7 cm 21-gauge needle. A 0.018 guidewire was advanced centrally. The needle was removed and a micro sheath placed. The 0.018 guidewire was exchanged for a 0.035 guidewire and the micro sheath exchanged for a 5 Romanian vascular sheath. An Omni Flush catheter was advanced over the guidewire and formed in the distal abdominal aorta. Contrast was injected which demonstrates a widely patent distal abdominal aorta, bilateral common iliac bilateral external iliac and bilateral internal iliac arteries. The patient's overall arterial system is diminutive in nature. The 0.035 guidewire was advanced through the Omni Flush catheter and the Omni Flush catheter withdrawn to the left internal iliac artery. Selective cannulation was performed and additional angiography performed in multiple obliquities. The origin of the uterine artery was identified at the trifurcation of anterior and posterior divisions of the internal iliac artery. A renegade high flow microcatheter and a variety of microcatheter used was then utilized in an attempt to cannulate the uterine artery without success. Ultimately, the Omni Flush catheter was exchanged for Cobra C2 catheter and additional angiography was performed for anatomic localization. Ultimately, the left uterine artery was cannulated using the renegade high flow microcatheter and a glide GT guidewire. Together the guidewire and catheter were advanced into the horizontal portion of the uterine artery. Angiography was performed for anatomic localization. Embolization of the uterine artery on the left was then performed using a Gelfoam slurry. Embolization was performed to vascular pruning. The catheter was and guidewires were removed and the Omni Flush catheter reinserted over the guidewire to the distal abdominal aorta. The bifurcation was then crossed using the Omni Flush catheter and guidewire and the Omni Flush catheter exchanged for a C2 catheter which was used to selectively cannulate the internal iliac artery on the right. Angiography was performed in multiple obliquities for anatomic localization. The microcatheter and micro guidewire were then advanced and used to selectively cannulate the uterine artery which again originates as a trifurcation. The catheter and guidewire were advanced to the horizontal portion and embolization performed using a Gelfoam slurry. At this point, the catheters, guidewires and sheaths was removed and hemostasis achieved using Angio-Seal arterial closure device. Sterile dressing was valeria lied. The patient tolerated the procedure well. There were no immediate postprocedure complications. Conscious sedation was performed under the guidance of radiologic nursing. Continuous cardiopulmonary monitoring was utilized. Impression: Bilateral uterine artery embolization with Gelfoam slurry.
--- NOTE | 2022-03-04 17:54 | Electrocardiograph Report ---
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
[2022-03-04] MEDS: MORPHINE 2 MG/1 ML INJ IV PRN ×2 (19:04→23:23)
[2022-03-04] MEDS: ONDANSETRON 4 MG/2 ML INJ IV PRN (19:05)
[2022-03-05] MEDS: SODIUM CHLORIDE 0.9% 1000 ML 1,000 ML IV SCH (01:39)
[2022-03-05 06:06] LABS: Hematocrit 22.5 % (30.3-42.9); Hemoglobin 7.3 gm/dl (10.1-14.3); Mean Corpuscular HGB Conc 32 % (30-34); Mean Corpuscular Volume 89 fl (79-97); Platelet Count 251 K/mm3 (140-440); Red Blood Count 2.54 M/mm3 (3.65-5.03); Red Cell Distribution Width 14.5 % (13.2-15.2)
[2022-03-05 06:28] LABS: Blood Urea Nitrogen 5 mg/dL (7-17); Calcium 8.2 mg/dL (8.4-10.2); Hemolysis Index 1
[2022-03-05 06:40] LABS: BUN/Creatinine Ratio 7
[2022-03-05] MEDS: oxyCODONE /ACETAMINOPHEN 5-325MG TAB PO PRN ×2 (08:23→13:10)
--- NOTE | 2022-03-05 09:13 | Progress Note ---
Assessment and Plan Assessment and plan: Patient is a 36-year-old female with a history of migraine headaches, peripheral artery disease left lower ext with stent placed in November 2021 and currently on Xarelto. She presented to the ED with complaints of dizziness palpitations fatigue and chest discomfort. Hemoglobin was found to be 5.7. Uterine artery embolization was performed by Vascular surgery yesterday. She was transfused 2 units of pRBCs with Hgb of 7.3 this morning. Patient reports continued bleeding but not as severe as on presentation. She does report no chest pain, but palpitations and dyspnea on exertion. One more unit of pRBCs was ordered due to drop in Hgb this morning. #Symptomatic anemia - improving #Menorrhagia -continue iron supplementation -received total 2 units of pRBCs; 1 more ordered -s/p Uterine artery embolization #Atypical chest pain likely secondary to severe anemia -resolved -likely due to increased oxygen demand from anemia #Left lower extremity PAD status post stents on anticoagulation -patient started on Xarelto to prevent clotting; currently held -b/l LE dopplers ordered to evaluate for DVT, if negative patient does not have to continue Xarelto #Migraine chronic -stable continue PRN meds Thank you for allowing us take part in the care of your patient. Patient is currently chest pain free. We will follow and await result of imaging and post transfusion Hgb. History Interval history: Patient reports resolution of chest pain. She continues to experience with palpitations and shortness of breath with exertion. She reports that she continues to have bleeding with clots, although the amount has decreased. Hospitalist Physical - Physical exam Narrative exam: GENERAL: Well-developed well-nourished. In no acute distress. HEENT: Normocephalic. Atraumatic. CHEST/LUNGS: CTAB on room air HEART/CARDIOVASCULAR: RRR. No murmur, rubs or gallops appreciated. ABDOMEN: +BS. ND. Mild TTP in lower quadrants. SKIN: No rashes noted. NEURO: No focal motor deficit. Follows all commands. MUSCULOSKELETAL: No joint effusion EXTREMITIES: No cyanosis, clubbing or edema. PSYCH: Cooperative. - Constitutional Vitals: Temp Pulse Resp BP Pulse Ox 98.4 F 81 16 120/68 100 03/05/22 07:59 03/05/22 07:59 03/05/22 07:59 03/05/22 07:59 03/05/22 07:59 General appearance: Present: no acute distress HEART Score - HEART Score Troponin: Troponin T < 0.010 ng/mL (0.00-0.029) 03/04/22 Unknown Results - Labs CBC & Chem 7: 03/05/22 04:26 03/05/22 04:26 Labs: Laboratory Last Values WBC 16.6 K/mm3 (4.5-11.0) H 03/05/22 04:26 RBC 2.54 M/mm3 (3.65-5.03) L 03/05/22 04:26 Hgb 7.3 gm/dl (10.1-14.3) L 03/05/22 04:26 Hct 22.5 % (30.3-42.9) L 03/05/22 04:26 MCV 89 fl (79-97) 03/05/22 04:26 MCH 29 pg (28-32) 03/05/22 04:26 MCHC 32 % (30-34) 03/05/22 04:26 RDW 14.5 % (13.2-15.2) 03/05/22 04:26 Plt Count 251 K/mm3 (140-440) 03/05/22 04:26 Lymph % (Auto) 32.2 % (13.4-35.0) 03/04/22 15:17 [place] % (Auto) 5.0 % (0.0-7.3) 03/04/22 15:17 Eos % (Auto) 0.1 % (0.0-4.3) 03/04/22 15:17 Baso % (Auto) 0.5 % (0.0-1.8) 03/04/22 15:17 Lymph # (Auto) 4.4 K/mm3 (1.2-5.4) 03/04/22 15:17 [place] # (Auto) 0.7 K/mm3 (0.0-0.8) 03/04/22 15:17 Eos # (Auto) 0.0 K/mm3 (0.0-0.4) 03/04/22 15:17 Baso # (Auto) 0.1 K/mm3 (0.0-0.1) 03/04/22 15:17 Add Manual Diff Complete 03/04/22 03:03 Total Counted 100 03/04/22 03:03 Seg Neutrophils % 62.2 % (40.0-70.0) 03/04/22 15:17 Seg Neuts % (Manual) 67.0 % (40.0-70.0) 03/04/22 03:03 Band Neutrophils % 0 % 03/04/22 03:03 Lymphocytes % (Manual) 31.0 % (13.4-35.0) 03/04/22 03:03 Reactive Lymphs % (Man) 0 % 03/04/22 03:03 Monocytes % (Manual) 1.0 % (0.0-7.3) 03/04/22 03:03 Eosinophils % (Manual) 1.0 % (0.0-4.3) 03/04/22 03:03 Basophils % (Manual) 0 % (0.0-1.8) 03/04/22 03:03 Metamyelocytes % 0 % 03/04/22 03:03 Myelocytes % 0 % 03/04/22 03:03 Promyelocytes % 0 % 03/04/22 03:03 Blast Cells % 0 % 03/04/22 03:03 Nucleated RBC % Not Reportable 03/04/22 03:03 Seg Neutrophils # 8.4 K/mm3 (1.8-7.7) H 03/04/22 15:17 Seg Neutrophils # Man 9.9 K/mm3 (1.8-7.7) H 03/04/22 03:03 Band Neutrophils # 0.0 K/mm3 03/04/22 03:03 Lymphocytes # (Manual) 4.6 K/mm3 (1.2-5.4) 03/04/22 03:03 Abs React Lymphs (Man) 0.0 K/mm3 03/04/22 03:03 Monocytes # (Manual) 0.1 K/mm3 (0.0-0.8) 03/04/22 03:03 Eosinophils # (Manual) 0.1 K/mm3 (0.0-0.4) 03/04/22 03:03 Basophils # (Manual) 0.0 K/mm3 (0.0-0.1) 03/04/22 03:03 Metamyelocytes # 0.0 K/mm3 03/04/22 03:03 Myelocytes # 0.0 K/mm3 03/04/22 03:03 Promyelocytes # 0.0 K/mm3 03/04/22 03:03 Blast Cells # 0.0 K/mm3 03/04/22 03:03 WBC Morphology Not Reportable 03/04/22 03:03 Hypersegmented Neuts Not Reportable 03/04/22 03:03 Hyposegmented Neuts Not Reportable 03/04/22 03:03 Hypogranular Neuts Not Reportable 03/04/22 03:03 Smudge Cells Not Reportable 03/04/22 03:03 Toxic Granulation Not Reportable 03/04/22 03:03 Toxic Vacuolation Not Reportable 03/04/22 03:03 Dohle Bodies Not Reportable 03/04/22 03:03 Pelger-Huet Anomaly Not Reportable 03/04/22 03:03 Ramesh Rods Not Reportable 03/04/22 03:03 Platelet Estimate Consistent w auto 03/04/22 03:03 Clumped Platelets Not Reportable 03/04/22 03:03 Plt Clumps, EDTA Not Reportable 03/04/22 03:03 Large Platelets Not Reportable 03/04/22 03:03 Giant Platelets Not Reportable 03/04/22 03:03 Platelet Satelliting Not Reportable 03/04/22 03:03 Plt Morphology Comment Not Reportable 03/04/22 03:03 RBC Morphology Not Reportable 03/04/22 03:03 Dimorphic RBCs Not Reportable 03/04/22 03:03 Polychromasia Not Reportable 03/04/22 03:03 Hypochromasia Not Reportable 03/04/22 03:03 Poikilocytosis Not Reportable 03/04/22 03:03 Anisocytosis 1+ 03/04/22 03:03 Microcytosis Not Reportable 03/04/22 03:03 Macrocytosis Not Reportable 03/04/22 03:03 Spherocytes Not Reportable 03/04/22 03:03 Pappenheimer Bodies Not Reportable 03/04/22 03:03 Sickle Cells Not Reportable 03/04/22 03:03 Target Cells Not Reportable 03/04/22 03:03 Tear Drop Cells Not Reportable 03/04/22 03:03 Ovalocytes Not Reportable 03/04/22 03:03 Helmet Cells Not Reportable 03/04/22 03:03 Olivares-[place] Bodies Not Reportable 03/04/22 03:03 Anna Rings Not Reportable 03/04/22 03:03 [place] Cells Not Reportable 03/04/22 03:03 Bite Cells Not Reportable 03/04/22 03:03 Crenated Cell Not Reportable 03/04/22 03:03 Elliptocytes Not Reportable 03/04/22 03:03 Acanthocytes (Spur) Not Reportable 03/04/22 03:03 Rouleaux Not Reportable 03/04/22 03:03 Hemoglobin C Crystals Not Reportable 03/04/22 03:03 Schistocytes Not Reportable 03/04/22 03:03 Malaria parasites Not Reportable 03/04/22 03:03 [place] Bodies Not Reportable 03/04/22 03:03 Hem Pathologist Commnt No 03/04/22 03:03 PT 16.2 Sec. (12.2-14.9) H 03/04/22 03:49 INR 1.16 (0.87-1.13) H 03/04/22 03:49 APTT 25.6 Sec. (24.2-36.6) 03/04/22 03:49 Sodium 139 mmol/L (137-145) 03/05/22 04:26 Potassium 4.1 mmol/L (3.6-5.0) D 03/05/22 04:26 Chloride 107.1 mmol/L (98-107) H 03/05/22 04:26 Carbon Dioxide 20 mmol/L (22-30) L 03/05/22 04:26 Anion Gap 16 mmol/L 03/05/22 04:26 BUN 5 mg/dL (7-17) L 03/05/22 04:26 Creatinine 0.7 mg/dL (0.6-1.2) 03/05/22 04:26 Estimated GFR > 60 ml/min 03/05/22 04:26 BUN/Creatinine Ratio 7 % 03/05/22 04:26 Glucose 103 mg/dL (65-100) H 03/05/22 04:26 Calcium 8.2 mg/dL (8.4-10.2) L 03/05/22 04:26 Total Creatine Kinase 99 units/L (30-135) 03/04/22 Unknown CK-MB (CK-2) 1.3 ng/mL (0.0-4.0) 03/04/22 Unknown CK-MB (CK-2) Rel Index 1.3 (0-4) 03/04/22 Unknown Troponin T < 0.010 ng/mL (0.00-0.029) 03/04/22 Unknown HCG, Qual Negative (Negative) 03/04/22 03:03 HCG, Quant < 2 mIU/mL (0-4) 03/04/22 03:03 Urine Color Straw (Yellow) 03/04/22 05:54 Urine Turbidity Hazy (Clear) 03/04/22 05:54 Urine pH 7.0 (5.0-7.0) 03/04/22 05:54 Ur Specific [place] 1.005 (1.003-1.030) 03/04/22 05:54 Urine Protein 100 mg/dl mg/dL (Negative) 03/04/22 05:54 Urine Glucose (UA) Negative mg/dL (Negative) 03/04/22 05:54 Urine Ketones 5 mg/dL (Negative) 03/04/22 05:54 Urine Blood 4+ (Negative) 03/04/22 05:54 Urine Nitrite Negative (Negative) 03/04/22 05:54 Ur Reducing Substances Not Reportable 03/04/22 05:54 Urine Bilirubin Negative (Negative) 03/04/22 05:54 Urine Ictotest Not Reportable 03/04/22 05:54 Urine Urobilinogen < 1.0 mg/dL (<2.0) 03/04/22 05:54 Ur Leukocyte Esterase Negative (Negative) 03/04/22 05:54 Urine WBC (Auto) 11.0 /HPF (0.0-6.0) H 03/04/22 05:54 Urine RBC (Auto) > 182.0 /HPF (0.0-6.0) 03/04/22 05:54 U Epithel Cells (Auto) 1.0 /HPF (0-13.0) 03/04/22 05:54 Urine Mucus Few /HPF 03/04/22 05:54 Blood Type O POSITIVE 03/04/22 03:03 Blood Type O POSITIVE 03/04/22 03:03 Antibody Screen Negative 03/04/22 03:03 Crossmatch See Detail 03/04/22 03:03 Chou/IV: Voiding Method Bedside Commode Active Medications - Current Medications Current Medications: Generic Name Dose Route Start Last Admin Trade Name Sebas PRN Reason Stop Dose Admin Acetaminophen 650 mg 03/04/22 06:26 Acetaminophen 325 Mg Tab PO Q4H PRN Pain MILD(1-3)/Fever >100.5/CHU Sodium Chloride 1,000 mls @ 125 mls/hr 03/04/22 06:30 03/05/22 01:39 Nacl 0.9% 1000 Ml IV 125 mls/hr DIRECT JOSUE Administration Morphine Sulfate 2 mg 03/04/22 06:26 03/04/22 23:23 Morphine 2 Mg/1 Ml Inj IV 2 mg Q4H PRN Administration Pain, Moderate (4-6) Naloxone HCl 0.1 mg 03/04/22 06:26 Naloxone 0.4 Mg/1 Ml Inj IV Q2MIN PRN Res Rate </= 8 or 02 SAT < 92% Ondansetron HCl 4 mg 03/04/22 06:26 03/04/22 19:05 Ondansetron 4 Mg/2 Ml Inj IV 4 mg Q8H PRN Administration Nausea And Vomiting Oxycodone/Acetaminophen 1 tab 03/04/22 17:50 03/05/22 08:23 Oxycodone /Acetaminophen 5-325mg Tab PO 1 tab Q4H PRN Administration Pain, Moderate (4-6) Sodium Chloride 10 ml 03/04/22 10:00 03/05/22 07:11 Sodium Chloride 0.9% 10 Ml Flush Syringe IV Not Given BID JOSUE Sodium Chloride 10 ml 03/04/22 06:26 03/04/22 19:06 Sodium Chloride 0.9% 10 Ml Flush Syringe IV 10 ml PRN PRN Administration LINE FLUSH
[2022-03-05] MEDS: SODIUM CHLORIDE 0.9% 500 ML 500 ML IV ONE ×2 (10:28→13:55)
--- NOTE | 2022-03-05 12:29 | Progress Note ---
Assessment and Plan 36-year-old female status post uterine artery embolization with Gelfoam. Discussed postprocedural care including nausea/vomiting, low-grade fever, and pain. Vaginal bleeding is decreasing. No Xarelto. Will need Ruffin for pain PRN; Zofran dissolvable tablets for nausea/vomiting control, and ciprofloxacin for 1 week (p.o. twice daily 500 mg). The patient was initiated on Xarelto for placement of a venous stent. I will order venous ultrasounds to confirm no DVT. As long as no DVT, no need for further anticoagulation. Follow-up in [address] Villaseñor. Subjective Date of service: 03/05/22 Principal diagnosis: Menorrhagia; Symptomatic anemia Interval history: Palpable left radial artery, palpable femoral arteries and pedal pulses. Vaginal bleeding has decreased since yesterday. Objective - Constitutional Vitals: Vital Signs - 12hr 03/05/22 03/05/22 03/05/22 04:39 07:59 11:06 Temperature 98.9 F 98.4 F 98.4 F Pulse Rate 88 81 84 Respiratory 18 16 16 Rate Blood Pressure 120/80 120/68 102/57 O2 Sat by Pulse 100 100 100 Oximetry General appearance: Present: no acute distress - EENT Eyes: EOM intact ENT: hearing intact - Respiratory Respiratory effort: normal Extremities: normal temperature, normal color - Psychiatric Psychiatric: appropriate mood/affect, cooperative - Labs CBC & Chem 7: 03/05/22 04:26 03/05/22 04:26 Labs: Abnormal lab results 03/04/22 03/04/22 03/05/22 Range/Units 03:03 15:17 04:26 WBC 13.6 H 16.6 H (4.5-11.0) K/mm3 RBC 2.79 L 2.54 L (3.65-5.03) M/mm3 Hgb 8.2 L 7.3 L (10.1-14.3) gm/dl Hct 24.4 L D 22.5 L (30.3-42.9) % Seg Neutrophils # 8.4 H (1.8-7.7) K/mm3 Chloride (98-107) mmol/L Carbon Dioxide (22-30) mmol/L BUN (7-17) mg/dL Glucose (65-100) mg/dL Calcium (8.4-10.2) mg/dL Crossmatch See Detail 03/05/22 Range/Units 04:26 WBC (4.5-11.0) K/mm3 RBC (3.65-5.03) M/mm3 Hgb (10.1-14.3) gm/dl Hct (30.3-42.9) % Seg Neutrophils # (1.8-7.7) K/mm3 Chloride 107.1 H (98-107) mmol/L Carbon Dioxide 20 L (22-30) mmol/L BUN 5 L (7-17) mg/dL Glucose 103 H (65-100) mg/dL Calcium 8.2 L (8.4-10.2) mg/dL Crossmatch Medications & Allergies - Medications Allergies/Adverse Reactions: Allergies Penicillins Allergy (Verified 03/04/22 11:13) Hives Home Medications: Home Medications Medication Instructions Recorded Confirmed Last Taken Type Rivaroxaban [Xarelto] 20 mg PO QDAY 03/04/22 03/04/22 Unknown History Active Medications: Generic Name Dose Route Start Last Admin Trade Name Sebas PRN Reason Stop Dose Admin Acetaminophen 650 mg 03/04/22 06:26 Acetaminophen 325 Mg Tab PO Q4H PRN Pain MILD(1-3)/Fever >100.5/CHU Sodium Chloride 1,000 mls @ 125 mls/hr 03/04/22 06:30 03/05/22 01:39 Nacl 0.9% 1000 Ml IV 125 mls/hr DIRECT JOSUE Administration Morphine Sulfate 2 mg 03/04/22 06:26 03/04/22 23:23 Morphine 2 Mg/1 Ml Inj IV 2 mg Q4H PRN Administration Pain, Moderate (4-6) Naloxone HCl 0.1 mg 03/04/22 06:26 Naloxone 0.4 Mg/1 Ml Inj IV Q2MIN PRN Res Rate </= 8 or 02 SAT < 92% Ondansetron HCl 4 mg 03/04/22 06:26 03/04/22 19:05 Ondansetron 4 Mg/2 Ml Inj IV 4 mg Q8H PRN Administration Nausea And Vomiting Oxycodone/Acetaminophen 1 tab 03/04/22 17:50 03/05/22 08:23 Oxycodone /Acetaminophen 5-325mg Tab PO 1 tab Q4H PRN Administration Pain, Moderate (4-6) Sodium Chloride 10 ml 03/04/22 10:00 03/05/22 10:28 Sodium Chloride 0.9% 10 Ml Flush Syringe IV Not Given BID JOSUE Sodium Chloride 10 ml 03/04/22 06:26 03/04/22 19:06 Sodium Chloride 0.9% 10 Ml Flush Syringe IV 10 ml PRN PRN Administration LINE FLUSH HEART Score - HEART Score Troponin: Troponin T < 0.010 ng/mL (0.00-0.029) 03/04/22 Unknown
[2022-03-05] MEDS: ONDANSETRON 4 MG/2 ML INJ IV PRN (13:10)
[2022-03-05] MEDS: levoFLOXacin 500 MG TAB PO SCH (13:55)
[2022-03-05] MEDS ORDERED: ONDANSETRON 4 MG ODT TAB PO PRN (14:00)
[2022-03-06 00:52] LABS: Hematocrit 30.2 % (30.3-42.9); Hemoglobin 9.7 gm/dl (10.1-14.3)
[2022-03-06] MEDS: SODIUM CHLORIDE 0.9% 1000 ML 1,000 ML IV SCH (04:56)
[2022-03-06] MEDS: levoFLOXacin 500 MG TAB PO SCH (09:30)
--- NOTE | 2022-03-06 11:39 | Vascular Lab Report ---
Bilateral duplex Doppler ultrasound lower extremities INDICATION: Swelling FINDINGS: Bilateral common femoral veins, superficial femoral veins and popliteal veins have normal c ompressibility and phasic flow. IMPRESSION: No evidence for DVT in bilateral lower extremities Signer Name: Sergey Humphries MD Signed: 03/06/2022 11:35 AM Workstation Name: [id number]
[2022-03-06 12:00] VITALS: BP 106/69
--- NOTE | 2022-03-06 12:22 | Progress Note ---
Assessment and Plan - Patient Problems (1) Menorrhagia Current Visit: Yes Status: Acute Plan to address problem: Patient is clinically improved Discharge home (2) Symptomatic anemia Current Visit: Yes Status: Acute Subjective - Subjective Date of service: 03/06/22 Principal diagnosis: Menorrhagia; Symptomatic anemia Interval history: The patient reports feeling well today. She states that her bleeding has been minimal. She has had significant improvement in her hemodynamic status after the uterine artery embolization and the transfusion of blood products. Patient reports: appetite normal, voiding normally, pain well controlled Objective - Vital Signs Latest vital signs: Vital Signs Temp Pulse Pulse Resp BP Pulse Ox 03/06/22 11:17 98.9 F 89 16 106/69 100 03/06/22 10:00 80 18 98 03/06/22 07:50 98.9 F 79 16 106/70 99 03/06/22 05:41 99.8 F H 77 18 120/73 99 03/05/22 23:41 99.5 F 79 18 113/78 100 03/05/22 22:00 18 98 03/05/22 19:55 96.7 F L 77 18 124/66 100 03/05/22 18:56 98.2 F 72 16 116/75 100 03/05/22 18:36 112/79 03/05/22 16:25 106/71 03/05/22 15:45 117/65 03/05/22 14:00 98 Intake and Output 03/05/22 03/06/22 03/06/22 22:59 06:59 14:59 Intake Total 0 1610 Output Total 1250 Balance 0 360 Intake: Oral 360 Blood Product 0 250 Leukoreduced Red Blood 0 Cells Unit [id number] Other 1000 Output: Urine 1250 Void 1250 Other: Total, Intake Amount 1610 Total, Output Amount 1250 Voiding Method Bedside Commode Bedside Commode Weight 70.1 kg - Exam Abdomen: Present: normal appearance, soft - Labs Labs: Abnormal lab results 03/04/22 03/06/22 Range/Units 03:03 00:02 Hgb 9.7 L (10.1-14.3) gm/dl Hct 30.2 L D (30.3-42.9) % Crossmatch See Detail
== END 2022-03-06 13:30 | disposition home or self-care (01) ==
LOC: ED 02:24 → 4A 06:28
PROVIDERS: ADMIT Obstetrics & Gynecology; ATTEND Obstetrics & Gynecology
DX: D64.9 Anemia, unspecified (principal); N92.0 Excessive and frequent menstruation with regular cycle; R07.89 Other chest pain; I73.9 Peripheral vascular disease, unspecified; G43.909 Migraine, unspecified, not intractable, without status migrainosus; J45.909 Unspecified asthma, uncomplicated; M19.90 Unspecified osteoarthritis, unspecified site; Z79.899 Other long term (current) drug therapy; Z86.718 Personal history of other venous thrombosis and embolism; Z98.890 Other specified postprocedural states
CPT/HCPCS: 36415; 36430; 37244; 74174; 76830; 80048; 81001; 82550; 82553; 84484; 84702; 84703; 85014; 85018; 85025; 85027; 85610; 85730; 86850; 86900; 86901; 86920; 87086; 93005; 93970; 96374; 96375; 96376; 99285; C1760; C1769; C1887; C1894; G0378; J1644; J1815; J2250; J2270; J2405; J3010; J7030; J7040; P9016; Q9967; 85007; J3490; Q0162

== ENCOUNTER 2022-04-20 06:14 | Day surgery (SDC) | payer BC ==
[2022-04-20] MEDS ORDERED: LACTATED RINGERS 1,000 ML ONE (06:46)
--- NOTE | 2022-04-20 07:03 | Short Stay Summary ---
Short Stay Documentation Date of service: 04/20/22 Narrative H&P: 36y/o female with dysfunctional uterine bleeding and undesired fertility. The patient is aware of other contraceptive options. The patient has continued to have abnormal bleeding despite having a uterine artery embolization. - History Principal diagnosis: DUB; undesired fertility Past Medical History: other (vascular stasis; iliac vein compression; asthma) Past Surgical History: Other (vascular stent; Uterine artery embolization) Social history: - Allergies and Medications Current Medications: Allergies Penicillins Allergy (Verified 03/04/22 11:13) Hives Home Medications Medication Instructions Recorded Confirmed Last Taken Type No Known Home Medications [No 04/18/22 04/18/22 Unknown History Reported Home Medications] - Physical exam General appearance: no acute distress Integumentary: no rash HEENT: Atraumatic Lungs: Clear to auscultation Breasts: deferred Heart: Regular rate Gastrointestinal: normal Female Genitourinary: deferred - Brief post op/procedure progress note Date of procedure: 04/20/22 Pre-op diagnosis: Dysfunctional uterine bleeding; undesired fertility Post-op diagnosis: same Procedure: Hysteroscopy with endometrial ablation via NovaSure Laparoscopic bilateral salpingectomy Anesthesia: GETA Surgeon: YANA COVARRUBIAS Estimated blood loss: minimal Pathology: list (Bilateral fallopian tubes) Specimen disposition: to lab Condition: stable - Hospital course Hospital course: Patient was admitted the day of surgery and underwent an endometrial ablation and bilateral salpingectomy. Please see operative note for details of surgery. Postoperative course was uneventful. - Disposition Condition at discharge: Good Disposition: 01 HOME / SELF CARE / HOMELESS Short Stay Discharge Plan Activity: other (Pelvic rest for 1 week) Diet: regular Additional Instructions: Pelvic rest for 1 week Patient may resume normal activities in 1 week Patient may schedule follow-up with Dr. Covarrubias in 2 to 4 weeks Prescriptions: Ibuprofen [Motrin] 800 mg PO Q8HR PRN #30 tablet PRN Reason: Pain , Severe (7-10) HYDROcodone/APAP 5-325 [[place] 5/325] 1 each PO Q6HR PRN #15 tablet PRN Reason: Pain
[2022-04-20] MEDS ORDERED: BACTERIOSTATIC SODIUM CHLORIDE 0.9% 30 ML VIAL INFILTRATI ONE (07:11)
[2022-04-20] MEDS ORDERED: HYDROmorphone 1 MG/1 ML INJ ONE (07:13)
[2022-04-20] MEDS ORDERED: KETOROLAC 30 MG/1 ML INJ ONE (07:13)
[2022-04-20] MEDS ORDERED: dexAMETHasone 20 MG/5 ML VIAL ONE (07:13)
[2022-04-20] MEDS ORDERED: LIDOCAINE MPF (2%) 20 MG/1 ML VIAL 5 ML ONE (07:13)
[2022-04-20] MEDS ORDERED: propofoL 200 MG/20 ML VIAL IV ONE (07:13)
[2022-04-20] MEDS ORDERED: ONDANSETRON 4 MG/2 ML INJ ONE (07:13)
[2022-04-20] MEDS ORDERED: ROCURONIUM 50 MG/5 ML INJ IV ONE (07:13)
[2022-04-20 07:27] LABS: Hematocrit 34.3 % (30.3-42.9); Hemoglobin 11.3 gm/dl (10.1-14.3); Mean Corpuscular HGB Conc 33 % (30-34); Mean Corpuscular Volume 84 fl (79-97); Platelet Count 240 K/mm3 (140-440); Red Blood Count 4.07 M/mm3 (3.65-5.03); Red Cell Distribution Width 14.8 % (13.2-15.2)
--- NOTE | 2022-04-20 07:28 | Anesthesia Day of Surgery ---
Anesthesia Day of Surgery - Day of Surgery Patient Examined: Yes Patient H&P Reviewed: Yes Patient is NPO: Yes
--- NOTE | 2022-04-20 07:28 | Anesthesia Consultation ---
Anesthesia Consult and Med Hx Date of service: 04/20/22 - Airway Anesthetic Teeth Evaluation: Good ROM Head & Neck: Adequate Mental/Hyoid Distance: Adequate Mallampati Class: Class II Intubation Access Assessment: Probably Good - Pre-Operative Health Status ASA Pre-Surgery Classification: ASA2 Proposed Anesthetic Plan: General - Pulmonary Hx Smoking: No Hx Asthma: Yes (LAST ATTACK 3 YRS AGO , NO MEDS NOW) COPD: No Hx Pneumonia: No Hx Sleep Apnea: No (LORENZO PRE SCREEN NEGATIVE) - Cardiovascular System Hx Hypertension: No Hx Heart Murmur: Yes ( CHILD- NO PROBLEMS NOW) Hx Peripheral Vascular Disease: (COMPRESSION LT ILIAC ARTERY- HAD STENT) - Central Nervous System Hx Seizures: No Hx Psychiatric Problems: No - Gastrointestinal Hx Gastroesophageal Reflux Disease: No (h/o PONV) - Endocrine Hx Renal Disease: No Hx End Stage Renal Disease: No Hx Hypothyroidism: No Hx Hyperthyroidism: No - Hematic Hx Anemia: Yes (h/o heavy vaginal bleeding after IUD removal, requiring blood transfusion) Hx Sickle Cell Disease: No - Other Systems Hx Alcohol Use: No Hx Cancer: No
[2022-04-20] MEDS ORDERED: LACTATED RINGERS 1,000 ML IV SCH (07:30)
[2022-04-20] MEDS ORDERED: BUPIVACAINE/PF (0.5%) 5 MG/1 ML 30 ML VIAL INFILTRATI ONE ×2 (07:38→08:51)
[2022-04-20] MEDS ORDERED: GABAPENTIN 500 MG/10 ML ORAL LIQD PO NR (08:00)
[2022-04-20] MEDS ORDERED: SCOPOLAMINE TRANSDERMAL PATCH 72 HR TD NR (08:00)
[2022-04-20] MEDS ORDERED: MIDAZOLAM 2 MG/2 ML INJ IV NR (08:00)
[2022-04-20] MEDS ORDERED: FAMOTIDINE 20 MG/2 ML INJ IV NR (08:00)
[2022-04-20] MEDS ORDERED: GABAPENTIN 300 MG CAP PO NR (08:00)
[2022-04-20] MEDS ORDERED: CELECOXIB 200 MG CAP PO NR (08:00)
[2022-04-20] MEDS ORDERED: NEOSTIGMINE 10MG/10 ML INJ MDV ONE (08:38)
[2022-04-20] MEDS ORDERED: GLYCOPYRROLATE 0.4 MG/2 ML INJ ONE (08:38)
[2022-04-20] MEDS ORDERED: fentaNYL 100 MCG/2 ML INJ ONE (08:41)
--- NOTE | 2022-04-20 09:28 | Operative Report ---
Operative Report Operative Report: Date of surgery: April 20, 2022 Preoperative diagnosis: Unwanted fertility Postoperative diagnosis: Same as above Procedure: Laparoscopy; Bilateral salpingectomy Surgeon: Vicenta Carcamo M.D. Anesthesia: General endotracheal anesthesia Estimated blood loss: Minimal Pathology: Bilateral fallopian tubes Findings: Retroverted uterus normal tubes and ovaries bilaterally Indication: 36-year-old -0-0-2 with a history of unwanted fertility. The patient is elected for permanent sterilization. Procedure: The patient was taken to the operating room and given general endotracheal anesthesia without complication. The patient is prepped and draped in a normal sterile fashion. A bivalve speculum was placed in the patient's vagina and a single-tooth tenaculum was placed on the anterior lip of the cervix .A uterine acorn manipulator was placed, and the bivalve speculum was then removed. Attention was then turned to the patient's abdomen where a 5 mm infraumbilical skin incision was then made. A Veress needle was placed and peritoneal entry was verified water-filled syringe. Insufflation of the peritoneal cavity was performed with CO2 gas. A 5 mm trocar was placed and the laparoscope was then inserted. The patient was then placed in Trendelenburg. A 7 mm suprapubic skin incision was then made. Under direct visualization a 7 mm trocar was then placed. An additional 5 mm left lateral trocar was also placed. General survey of the patient's abdomen revealed normal uterus tubes and ovaries. The fallopian tube was then followed out to the fimbriated end. The LigaSure device was used in order to coagulate and transect the mesosalpinx. The fallopian tube was excised from the adnexa. The fallopian tube was removed through the 7 mm trocar. This was performed on the contralateral side as well. The trocars were then removed. The pneumoperitoneum was then released. The 5 mm trocar laparoscope was then removed. The skin incisions were then closed with 4-0 Monocryl. The incisions were injected with quarter percent Marcaine. Dressings were applied to the incision. The vaginal instruments were then removed atraumatically. Then successfully extubated and taken to the recovery room. All sponge laps and needle counts were correct x2. Date of procedure: April 20, 2022 Pre-operative diagnosis: Dysfunctional uterine bleeding Post-operative diagnosis: Same as above Procedure name(s): Hysteroscopy; endometrial ablation via NovaSure Surgeon: Vicenta Stone M.D. Radiation Officer: None Anesthesia: General endotracheal anesthesia Findings normal endometrial cavity Indication: 36-year-old -0-0-2 with dysfunctional uterine bleeding that has been unresponsive to medical management. Procedure The patient was taken to the operating room and given general tracheal anesthesia without complication. The patient was prepped and draped in a normal sterile fashion. A bivalve speculum was placed in the patient's vagina single- tooth tenaculums placed on the anterior lip of the cervix. The cervical os was dilated with graduated dilators. A uterine sound was inserted. The hysteroscope was then placed. Insufflation of the uterine cavity was performed with normal saline. Gen. survey of the uterine cavity revealed normal uterine cavity. The hysteroscope was then removed. The NovaSure device was then inserted. The endometrial length was 5.0 cm and the uterine width was 3.5 cm. The device was engaged and it passed the surveillance of the uterine cavity. The NovaSure device was then deployed with a energy of 96 W that lasted for 1 minute 9 seconds. The NovaSure device was then removed. The hysteroscope was again reinserted. There was evidence of charring of the endometrial surface. The remainder of the vaginal instruments were then removed atraumatically. The patient was then successfully extubated taken to the recovery room. All sponge laps and needle counts were correct 2.
--- NOTE | 2022-04-20 10:27 | Post Anesthesia Evaluation ---
- Post Anesthesia Evaluation Patient Participated: Yes Airway Patent: Yes Stable Respiratory Function: Yes Nausea/Vomiting: No Temp > 96.8F: Yes Pain Manageable: Yes Adequeate Hydration: Yes Anesthesia Complications: No
[2022-04-20 11:09] VITALS: BP 114/67
== END 2022-04-20 11:00 | disposition home or self-care (01) ==
LOC: OR 06:14
PROVIDERS: ATTEND Obstetrics & Gynecology
DX: Z30.2 Encounter for sterilization (principal); N93.8 Other specified abnormal uterine and vaginal bleeding; G43.909 Migraine, unspecified, not intractable, without status migrainosus; I48.91 Unspecified atrial fibrillation; M06.9 Rheumatoid arthritis, unspecified; F41.9 Anxiety disorder, unspecified; D64.9 Anemia, unspecified; Z83.3 Family history of diabetes mellitus; Z79.899 Other long term (current) drug therapy; Z88.0 Allergy status to penicillin; Z98.49 Cataract extraction status, unspecified eye; Z86.718 Personal history of other venous thrombosis and embolism; Z98.890 Other specified postprocedural states; Z80.8 Family history of malignant neoplasm of other organs or systems; Z82.49 Family history of ischemic heart disease and other diseases of the circulatory system
CPT/HCPCS: 36415; 58563; 58670; 81025; 85027; 88302; J1100; J1170; J1815; J2250; J2405; J2704; J2710; J3010; J3490; J7120; J1885